=== PATIENT | female | born 1985 | race American Indian/Alaskan Native ===

== ENCOUNTER 2021-07-29 07:44 | Day surgery (SDC) | payer OTHER ==
[~2021-07-29 07:44] MED LIST: ACETAMINOPHEN 500 MG TAB PO SCH; CELECOXIB 200 MG CAP PO NR; GABAPENTIN 300 MG CAP PO NR; LACTATED RINGERS 1,000 ML IV SCH; MIDAZOLAM 2 MG/2 ML INJ IV NR; SCOPOLAMINE TRANSDERMAL PATCH 72 HR TD NR
--- NOTE | 2021-07-29 08:32 | Anesthesia Consultation ---
Anesthesia Consult and Med Hx Date of service: 07/29/21 - Airway Anesthetic Teeth Evaluation: Good ROM Head & Neck: Adequate Mental/Hyoid Distance: Adequate Mallampati Class: Class II Intubation Access Assessment: Probably Good - Pulmonary Exam CTA: Yes - Cardiac Exam Cardiac Exam: RRR - Pre-Operative Health Status ASA Pre-Surgery Classification: ASA1 Proposed Anesthetic Plan: General - Pulmonary Hx Smoking: No Hx Asthma: No Hx Respiratory Symptoms: No Hx Sleep Apnea: No (SNORES) - Cardiovascular System Hx Hypertension: No Hx Heart Attack/AMI: No - Central Nervous System Hx Neuromuscular Disorder: No Hx Back Pain: No Hx Psychiatric Problems: No - Gastrointestinal Hx Gastroesophageal Reflux Disease: No - Endocrine Hx Renal Disease: No Hx Liver Disease: No Hx Hypothyroidism: No - Hematic Hx Anemia: No Hx Sickle Cell Disease: No - Other Systems Hx Alcohol Use: No Hx Substance Use: No Hx Cancer: No Hx Obesity: No - Additional Comments Anesthesia Medical History Comments: no hx of anesthetic complications
--- NOTE | 2021-07-29 08:32 | Anesthesia Day of Surgery ---
Anesthesia Day of Surgery - Day of Surgery Patient Examined: Yes Patient H&P Reviewed: Yes Patient is NPO: Yes
[2021-07-29] MEDS ORDERED: LIDOCAINE MPF (2%) 20 MG/1 ML VIAL 5 ML ONE (08:41)
[2021-07-29] MEDS ORDERED: ROCURONIUM 50 MG/5 ML INJ IV ONE (08:41)
[2021-07-29] MEDS ORDERED: propofoL 200 MG/20 ML VIAL IV ONE (08:42)
[2021-07-29] MEDS ORDERED: HYDROmorphone 1 MG/1 ML INJ ONE (08:42)
--- NOTE | 2021-07-29 08:59 | Operative Report ---
Operative Report Operative Report: Preoperative diagnosis: Pelvic pain,right ovarian cyst Postoperative diagnosis: Enlarged right ovary with multiple follicles, no discreet dermoid noted Procedure:Operative laparoscopy with ovarian drilling of right ovary Surgeon: Dr. Jennyfer Cuenca Anesthesia: GETOliver Complications: None EBL: Minimal IV fluids: 1 L crystalloid Urine output: 200 cc clear Drain: None Findings: no discreet ovarian mass, +ve follicles on right ovary Procedure: Patient was consented in preop holding about risks benefits possible complications as well as alternatives to the procedure. After informed consent was obtained patient was taken to the operating room. She received excellent general endotracheal anesthesia and with no complication. She was then placed in the dorsal lithotomy position, prepped and draped in a sterile fashion. A timeout was verified, a Chaidez catheter was placed atraumatically. A speculum was placed in the vaginal vault, the parametria was noted to be pink with no masses lesions or nodularity. The cervix was identified, grasped with a single- tooth tenaculum, and an acorn uterine manipulator was placed atraumatically. Attention then turned to the abdomen. An umbilical incision was made with a scalpel, taken down to the fascia which was incised sharply atraumatically. The Milligan trocar was then introduced into the abdomen atraumatically. Correct placement of the trocar was confirmed under direct visualization. The patient was placed in steep Trendelenburg. Ancillary ports then placed in the left and right lower quadrant, 5 mm trocars were then introduced into each lateral port atraumatically. An atraumatic grasper was placed in the 5 mm trocar port to allow for retraction and visualization. A [place] LigaSure was used for ovarian driling of the rigt ovary to decrease te bulky volume. Excellent hemostasis. At the completion of the procedure all trochars were removed atraumatically under direct visualization. The fascia was closed with 0 Vicryl, the skin closed with Monocryl. Pressure dressings were applied at both incision sites. The uterine manipulator and speculum were removed from the cervix and the vagina respectively. The Chaidez catheter was removed. The patient was extubated and taken to the recovery area in stable condition. Her family was notified of her stable condition immediately following the completion of the procedure. There were no complications. EBL less than 50 mL. All sponge needle and instrument counts were correct x2. Jazmin Cuenca MD
[2021-07-29] MEDS ORDERED: ceFAZolin/STERILE WATER 2 GM/20 ML SYRINGE IV NR (09:00)
[2021-07-29] MEDS ORDERED: ceFAZolin/Water 2 GM/20 ML 2 GM/20 ML SYRINGE IV ONE (09:18)
[2021-07-29] MEDS ORDERED: HYDROcodone/ACETAMINOPHEN 5-325 MG TAB PO PRN (09:46)
[2021-07-29] MEDS ORDERED: HYDROmorphone 1 MG/1 ML INJ IV PRN (09:46)
[2021-07-29] MEDS ORDERED: oxyCODONE /ACETAMINOPHEN 5-325MG TAB PO PRN (09:49)
[2021-07-29] MEDS ORDERED: ONDANSETRON 4 MG/2 ML INJ IV PRN (10:00)
[2021-07-29] MEDS ORDERED: KETOROLAC 30 MG/1 ML INJ ONE (10:39)
[2021-07-29] MEDS ORDERED: NEOSTIGMINE 10MG/10 ML INJ MDV ONE (10:39)
[2021-07-29] MEDS ORDERED: ONDANSETRON 4 MG/2 ML INJ ONE (10:39)
[2021-07-29] MEDS ORDERED: dexAMETHasone 20 MG/5 ML VIAL ONE (10:39)
[2021-07-29] MEDS ORDERED: GLYCOPYRROLATE 0.4 MG/2 ML INJ ONE (10:39)
--- NOTE | 2021-07-29 14:52 | Post Anesthesia Evaluation ---
- Post Anesthesia Evaluation Patient Participated: Yes Airway Patent: Yes Stable Respiratory Function: Yes Nausea/Vomiting: No Temp > 96.8F: Yes Pain Manageable: Yes Adequeate Hydration: Yes Anesthesia Complications: No
[2021-07-29 15:19] VITALS: BP 153/84
== END 2021-07-29 13:00 | disposition home or self-care (01) ==
LOC: OR 07:44
PROVIDERS: ATTEND Obstetrics & Gynecology
DX: R10.2 Pelvic and perineal pain (principal); N83.201 Unspecified ovarian cyst, right side; Z79.899 Other long term (current) drug therapy; Z98.51 Tubal ligation status; Z98.890 Other specified postprocedural states; Z90.49 Acquired absence of other specified parts of digestive tract
CPT/HCPCS: 58662; 81025; J0690; J1100; J1170; J1815; J1885; J2250; J2405; J2704; J2710; J3490; J7120